=== PATIENT | male | born 1970 | race Caucasian/White ===

== ENCOUNTER 2016-11-15 17:20 | Emergency (ER) | payer BC ==
[2016-11-16] MEDS ORDERED: SODIUM CHLORIDE 0.9% 1,000 ML ONE (00:35)
[2016-11-16] MEDS ORDERED: DIPHENHYDRAMINE 50 MG/ML VIAL ONE (00:36)
[2016-11-16] MEDS ORDERED: PROMETHAZINE 25 MG/ML VIAL ONE (00:36)
[2016-11-16] MEDS ORDERED: KETOROLAC 30 MG/ML VIAL ONE (00:37)
== END 2016-11-16 02:01 | disposition home or self-care (01) ==
LOC: ER 17:20
DX: G44.89 Other headache syndrome (principal)
CPT/HCPCS: 96365; 96375